=== PATIENT | female | born 1940 | race Caucasian/White ===

== ENCOUNTER 2018-12-14 08:42 | Emergency (ER) | payer OTHER, MEDICAID ==
[~2018-12-14] VITALS: Ht 165.1 cm; Wt 90.7 kg
[~2018-12-14 08:42] MED LIST: ALENDRONATE SOD35 MG PO; ASPIR 8181 MG PO; ATENOLOL 50MG T50 M1 PO; ATORVASTATIN CA20 MG PO; BRILINTA90 MG PO; CELEXA40 MG PO; CLONAZEPAM 1 MG1 M1 PO; COUMADIN 4 MG TA4 M1 PO; DIGOXIN250 MCG PO; LIPITOR10 MG PO; NEURONTIN 300300 M1 PO; NORVASC5 MG PO
[2018-12-14] MEDS ORDERED: CALCIUM 600 +1 EA14 PO (08:57)
[2018-12-14] MEDS ORDERED: VITAMIN D31000 UNIT PO (08:58)
[2018-12-14] MEDS ORDERED: MAGNESIUM GLUC PO (08:59)
[2018-12-14] MEDS ORDERED: ATENOLOL 50MG T50 M1 PO (08:59)
[2018-12-14] MEDS ORDERED: COUMADIN 4 MG TA4 M1 PO (09:00)
[2018-12-14] MEDS ORDERED: CYCLOBENZAPRINE5 MG PO (09:52)
[2018-12-14 10:30] VITALS: BP 146/87
== END 2018-12-14 10:31 | disposition home or self-care (01) ==
LOC: M.ERS 08:42
DX: M72.2 Plantar fascial fibromatosis (principal); M62.838 Other muscle spasm; I10 Essential (primary) hypertension; I48.2 Chronic atrial fibrillation; E78.00 Pure hypercholesterolemia, unspecified; Z95.5 Presence of coronary angioplasty implant and graft

== ENCOUNTER → 2018-12-21 | Outpatient (CLI) | payer OTHER, MEDICAID ==
[~2018-12-21] MED LIST changes: +CALCIUM 600 +1 EA14 PO; +CYCLOBENZAPRINE5 MG PO; +MAGNESIUM GLUC PO; +VITAMIN D31000 UNIT PO
== END ==
LOC: M.ULTRA 12:46
DX: M79.672 Pain in left foot (principal)